=== PATIENT | female | born 1955 | race Caucasian/White ===

== ENCOUNTER 2019-05-03 21:01 | Emergency (ER) | payer SELFPAY ==
--- NOTE | 2019-05-03 21:08 | ER Report ---
History and Physical Time Seen By MD: 21:04 Hx. of Stated Complaint: tripped over a dog chain, fell on left wrist HPI/ROS CHIEF COMPLAINT: fall with knee and wrist pain. HISTORY OF PRESENT ILLNESS: This is a 63 year old female. Fell tripping on dog chain while camping. From [place], [place]. Has pain in left wrist and left knee. Has some swelling in wrist. Normal sensation. Mild abrasion of wrist. Can move, but increased pain. Allergies: Coded Allergies: Penicillins (Verified Allergy, Intermediate, 05/03/19) Sulfa (Sulfonamide Antibiotics) (Verified Allergy, Intermediate, 05/03/19) Uncoded Allergies: steroids (Allergy, Intermediate, 05/03/19) Home Meds Active Scripts Cephalexin Monohydrate (CEPHALEXIN) 500 Mg Cap, 500 MG PO Q6H, #20 CAP 0 Refills Prov:VEE SAINI MD 05/04/19 Oxycodone Hcl/Acetaminophen (PERCOCET 5-325 MG TABLET) 1 Each Tablet, 1 EACH PO Q4H PRN for PAIN, #12 TAB 0 Refills Prov:VEE SAINI MD 05/04/19 Reported Medications Losartan Potassium (LOSARTAN POTASSIUM) 50 Mg Tablet, 50 MG PO QDAY 05/03/19 Fluoxetine Hcl (FLUOXETINE HCL) 20 Mg Capsule, 40 MG PO QDAY, CAPSULE 05/03/19 Levothyroxine Sodium (LEVOTHYROXINE SODIUM) 100 Mcg Tablet, 100 MCG PO QDAY, TAB 05/03/19 Alprazolam (XANAX) 0.5 Mg Tablet, 1 TAB PO TID, TAB 05/03/19 Omeprazole (OMEPRAZOLE) 20 Mg Capsule.dr, 1 CAP PO QDAY, CAP 05/03/19 Lorazepam (LORAZEPAM) 1 Mg Tab, TAB 05/03/19 Reviewed Nurses Notes: Yes Constitutional Vital Sign - Last 24 Hours 05/03/19 05/03/19 05/03/19 05/03/19 21:01 21:04 21:05 21:16 Temp 98.6 Pulse ??? 112 ??? Resp 16 B/P (MAP) 196/94 (128) 196/94 Pulse Ox 88 O2 Delivery Room Air 05/03/19 05/03/19 05/03/19 05/03/19 21:30 21:31 21:46 22:00 Pulse 99 96 B/P (MAP) 181/95 (123) 166/82 (110) Pulse Ox 90 89 05/03/19 05/03/19 05/03/19 05/03/19 22:01 22:16 22:30 22:31 Pulse 97 94 97 B/P (MAP) 196/97 (130) Pulse Ox 89 89 88 05/03/19 05/03/19 05/03/19 05/03/19 22:46 22:51 23:00 23:06 Pulse 94 91 93 B/P (MAP) 175/105 (128) Pulse Ox 90 90 87 05/03/19 05/03/19 05/03/19 05/03/19 23:21 23:30 23:36 23:51 Pulse 88 95 94 B/P (MAP) 158/93 (114) Pulse Ox 88 86 87 05/03/19 05/04/19 05/04/19 05/04/19 23:56 00:00 00:26 00:30 Pulse 93 88 B/P (MAP) 171/95 (120) 139/78 (98) Pulse Ox 85 05/04/19 05/04/19 05/04/19 05/04/19 00:41 00:56 01:00 01:11 Pulse 86 77 ??? B/P (MAP) 142/80 (100) Pulse Ox 84 82 Physical Exam General: Alert, no distress. Musculoskeletal: Pain, swelling and deformity of wrist over distal radius. Pain over ulnar styloid as well. Skin: Mild abrasion over ulnar side volar aspect of wrist. Neuro: Normal sensation. Cardio: Brisk cap refill and normal pulses. Medical Decision Making EKG/Imaging Imaging XR WRIST 3 OR MORE VIEWS LT HISTORY: Wrist pain. Fell on outstretched hand. COMPARISON: None. TECHNIQUE: PA, oblique, and lateral views of the left wrist. FINDINGS: There is a comminuted distal radial metaphyseal fracture with intra- articular extension and dorsal tilting. There is a radially displaced and tilted ulnar styloid fracture. There is soft tissue swelling of the wrist. There is severe degenerative change of the first carpal metacarpal joint. IMPRESSION: 1. Comminuted distal radial metaphyseal fracture. 2. Displaced ulnar styloid fracture. 3. Severe degenerative change of the first carpometacarpal joint. Report Dictated By: Magali begum 05/03/2019 9:41 PM HISTORY: Wrist fracture. Post reduction. COMPARISON: 05/03/2019 at 0926 hours. TECHNIQUE: PA and lateral views of the left wrist. FINDINGS: Lateral view is oblique. Splint material is present. Mild improvement in alignment of the distal radial metaphyseal and ulnar styloid fractures. Persistent dorsal tilting of the radial metaphyseal fracture. Severe degenerative change of the first metacarpal metacarpal joint. IMPRESSION: 1. Mild improvement in alignment of the distal radial metaphyseal and ulnar styloid fractures. Splint material is now present. Report Dictated By: Magali Bailey at 05/04/2019 12:35 AM KNEE 4 VIEW LEFT HISTORY: Fall. Knee pain. COMPARISON: None. TECHNIQUE: AP, lateral, oblique, and sunrise views of the left knee. FINDINGS: There is no fracture or dislocation. No joint effusion. There is mild medial patellar femoral joint compartment narrowing, and there is moderate medial tibiofemoral joint compartment narrowing. IMPRESSION: 1. Degenerative changes, but no acute osseous abnormality of the left knee. Report Dictated By: Magali Bailey at 05/03/2019 9:43 PM ED Course/Re-evaluation ED Course Percocet given for pain after images obtained. Cleaned the abrasion. Hematoma block and attempted reduction with splint application. Patient will follow-up with orthopedic surgery in [place]. Procedure: Hematoma block A hematoma block was performed for the distal radius fracture. The block was performed with lidocaine without epinephrine. The patient experienced complete pain relief. The procedure was performed by myself. Procedure: Distal radius fracture reduction The distal radius fracture was reduced in the usual fashion without complications. Post reduction the patient's vascular exam was normal. Numb from hematoma block. Post reduction x-ray demonstrates reduction of the joint to some improvement in the anatomic position. The procedure was performed by myself. Procedure: forearm half-cast placement. A half-cast/splint as noted above was applied. After application of the half- cast, I returned and re-examined the patient. The half-cast was adequately immobilizing the joint and distally the patient's circulation was intact, numb from hematoma block. This was applied by myself. Decision to Disposition Date: May 04, 2019 Decision to Disposition Time: 00:34 Depart Departure Latest Vital Signs Vital Signs Date Time Temp Pulse Resp B/P (MAP) Pulse Ox O2 Delivery O2 Flow Rate FiO2 05/04/19 01:11 ??? 05/04/19 01:00 142/80 (100) 05/04/19 00:56 82 05/03/19 21:05 98.6 16 Room Air Impression: Primary Impression: Fracture of distal radius and ulna Additional Impression: Abrasion, wrist w/o infection Condition: Improved Disposition: HOME OR SELF-CARE New Scripts Cephalexin Monohydrate (CEPHALEXIN) 500 Mg Cap 500 MG PO Q6H, #20 CAP 0 Refills Prov: VEE SAINI MD 05/04/19 Oxycodone Hcl/Acetaminophen (PERCOCET 5-325 MG TABLET) 1 Each Tablet 1 EACH PO Q4H PRN for PAIN, #12 TAB 0 Refills Prov: VEE SAINI MD 05/04/19 Patient Instructions: Abrasion (ED), Wrist Fracture in Adults (ED) Additional Instructions: Ibuprofen 200mg over the counter tablets, take 4 tablets three times a day with food. Percocet 5/325, one every 4 hours as needed for pain. Apply ice 20 minutes every 1-2 hours while awake. Keep the splint in place until you see orthopedic surgery. You should call to make an appointment with orthopedic surgery and be seen in the next 3-5 days. Rest the injured area, keep it elevated while at rest. For the abrasion, we would recommend Cephalexin 500mg four times a day for 5 days. Problem Qualifiers Primary Impression: Fracture of distal radius and ulna Encounter type: initial encounter Fracture type: closed Laterality: left Qualified Codes: S52.502A - Unspecified fracture of the lower end of left radius, initial encounter for closed fracture; S52.602A - Unspecified fracture of lower end of left ulna, initial encounter for closed fracture VEE SAINI MD May 03, 2019 21:08
[2019-05-03] MEDS ORDERED: LOSA50TA80 PO (21:20)
[2019-05-03] MEDS ORDERED: LOR1 (21:20)
[2019-05-03] MEDS ORDERED: LEVO-3 PO (21:20)
[2019-05-03] MEDS ORDERED: OMEP-126 PO (21:20)
[2019-05-03] MEDS ORDERED: FLUO-177 PO (21:20)
[2019-05-03] MEDS ORDERED: ALPR-429 PO (21:20)
--- NOTE | 2019-05-03 21:51 | RADIOLOGY IMAGING REPORT ---
FACILITY: [facility] - [place] PATIENT NAME: Ann Mai : 1955 MR: [id number] V: [id number] EXAM DATE: ORDERING PHYSICIAN: VEE SANII TECHNOLOGIST: Location: [facility] - [place] Patient: Ann Mai : 1955 Visit/Account:[id number] Date of Sevice: 05/03/2019 XR WRIST 3 OR MORE VIEWS LT HISTORY: Wrist pain. Fell on outstretched hand. COMPARISON: None. TECHNIQUE: PA, oblique, and lateral views of the left wrist. FINDINGS: There is a comminuted distal radial metaphyseal fracture with intra-articular extension and dorsal tilting. There is a radially displaced and tilted ulnar styloid fracture. There is soft tissu e swelling of the wrist. There is severe degenerative change of the first carpal metacarpal joint. IMPRESSION: 1. Comminuted distal radial metaphyseal fracture. 2. Displaced ulnar styloid fracture. 3. Severe degenerative change of the first carpometacarpal joint. Report Dictated By: Magali Bailey at 05/03/2019 9:41 PM Report E-Signed By: Magali Bailey at 05/03/2019 9:43 PM WSN:[id number]
--- NOTE | 2019-05-03 21:52 | RADIOLOGY IMAGING REPORT ---
FACILITY: [facility] PATIENT NAME: Ann Mai : 1955 MR: [id number] V: [id number] EXAM DATE: ORDERING PHYSICIAN: VEE SAINI TECHNOLOGIST: Location: [facility] - [place] Patient: Ann Mai : 1955 Visit/Account:[id number] Date of Sevice: 05/03/2019 KNEE 4 VIEW LEFT HISTORY: Fall. Knee pain. COMPARISON: None. TECHNIQUE: AP, lateral, oblique, and sunrise views of the left knee. FINDINGS: There is no fracture or dislocation. No joint effusion. There is mild medial patellar femor al joint compartment narrowing, and there is moderate medial tibiofemoral joint compartment narrowing . IMPRESSION: 1. Degenerative changes, but no acute osseous abnormality of the left knee. Report Dictated By: Magali Bailey at 05/03/2019 9:43 PM Report E-Signed By: Magali Bailey at 05/03/2019 9:44 PM WSN:[id number]
[2019-05-03] MEDS ORDERED: CEPHALEXIN MONO 500 MG CAP PO ONE (22:15)
[2019-05-03] MEDS ORDERED: oxyCODON/ACET (*)5/325MG (CII) 1 TAB TAB PO ONE (22:15)
[2019-05-03] MEDS ORDERED: DIPHTH/TETANUS/ACEL. PERTUSSIS IM ONLY ONE (22:30)
[2019-05-04] MEDS ORDERED: CEPH500C24 PO (00:39)
[2019-05-04] MEDS ORDERED: OXYC-865 PO (00:39)
[2019-05-04] MEDS ORDERED: oxyCODONE/ACETAMIN 5/325MG TH 2 TAB/BOTTLE PO ONE (00:40)
[2019-05-04] MEDS ORDERED: CEPHALEXIN 500 MG CAP TH 2 CAP/BOTTLE PO ONE (00:40)
[2019-05-04] MEDS ORDERED: IBUPROFEN 800 MG TAB PO ONE (00:40)
--- NOTE | 2019-05-04 00:45 | RADIOLOGY IMAGING REPORT ---
FACILITY: [facility] PATIENT NAME: Ann Mai : 1955 MR: [id number] V: [id number] EXAM DATE: ORDERING PHYSICIAN: VEE SAINI TECHNOLOGIST: Location: [facility] - [place] Patient: Ann Mai : 1955 Visit/Account:[id number] Date of Sevice: 05/04/2019 XR WRIST 2 VWS LT HISTORY: Wrist fracture. Post reduction. COMPARISON: 05/03/2019 at 0926 hours. TECHNIQUE: PA and lateral views of the left wrist. FINDINGS: Lateral view is oblique. Splint material is present. Mild improvement in alignment of the d istal radial metaphyseal and ulnar styloid fractures. Persistent dorsal tilting of the radial metaphy seal fracture. Severe degenerative change of the first metacarpal metacarpal joint. IMPRESSION: 1. Mild improvement in alignment of the distal radial metaphyseal and ulnar styloid fractures. Splint material is now present. Report Dictated By: Magali Bailey at 05/04/2019 12:35 AM Report E-Signed By: Magali Bailey at 05/04/2019 12:37 AM WSN:[id number]
[2019-05-04 01:00] VITALS: BP 142/80
== END 2019-05-04 01:04 | disposition home or self-care (01) ==
LOC: ER 21:09
DX: S52.502A Unspecified fracture of the lower end of left radius, initial encounter for closed fracture (principal); S52.602A Unspecified fracture of lower end of left ulna, initial encounter for closed fracture
CPT/HCPCS: 73564; 90471; 90715; 99284